=== PATIENT | male | born 1945 | race Caucasian/White ===

== ENCOUNTER → 2017-06-12 | Day surgery (SDC) | payer MEDICARE, OTHER, SELFPAY | PROVIDERS: Family Provider Family Medicine; PCP Family Medicine; Visit Provider Ophthalmology | DX: H25.12 Age-related nuclear cataract, left eye (principal) | CPT/HCPCS: V2788 ==

== ENCOUNTER 2019-02-14 13:19 | Day surgery (SDC) | payer MEDICARE, BC, SELFPAY ==
[2019-02-14] VITALS (8 sets, daily range): BP systolic 108–134; BP diastolic 63–80; PULSE 65–84; RESP 12–22; TEMP 36.6–37.1; O2SAT 96–100; BMI 26.4
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
--- NOTE | 2019-02-14 12:19 | PM.OP.ENDO ---
Operative Date/Time/Diagnoses Date of procedure: 02/14/19 Pre-op diagnosis: 1. History of colon polyps 2. Screening for colon cancer Procedure & Clinicians Study performed: Colonoscopy Same procedure as scheduled: Yes Indications: 1. History of colon polyps 2. Screening for colon cancer Surgeon: Tanya Samano Procedure Notes SCOAP/Timeout: 15:10 Procedure in detail: ENDOSCOPIST: Tanya Samano MD Sedation RN: Danielle Leslie RN Sedation start time: 15:13 Sedation end time: 15:29 PROCEDURE: Colonoscopy INDICATIONS: 1. History of colon polyps 2. Screening for colon cancer MEDICATION: Levsin 0.125 mg sublingual, 4 mg Versed, and 100 mcg fentanyl. Due to poor inspiratory effort, 0.2 mg of flumazenil was administered with excellent affect. ASA CLASS: 2 CECAL WITHDRAWAL TIME: 8 minutes COMPLICATIONS: None. EXTENT OF PROCEDURE: Cecum. QUALITY OF PREP: Good with portions of liquid stool. PROCEDURE: Prior to insertion of the colonoscope, a digital rectal examination was accomplished with circumferential palpation of the distal rectal mucosa without significant findings being noted. The high-definition colonoscope was passed into the rectum in the usual fashion and advanced over to the cecum without difficulty. The ileocecal valve, appendiceal stoma, and medial wall all could be inspected and no abnormalities were seen. ASCENDING COLON: As the colonoscope was withdrawn, care was taken to expose and inspect the haustral folds and no abnormalities were seen. HEPATIC FLEXURE: Normal no polyps, diverticula or other abnormalities. TRANSVERSE COLON: Normal no polyps, diverticula or other abnormalities. DESCENDING COLON: Minor diverticulosis, noninflamed, otherwise, normal, no polyps, or other abnormalities. SIGMOID COLON: Minor diverticulosis, noninflamed, otherwise, normal, no polyps, or other abnormalities. RECTUM: Normal. J maneuver was produced. There was no significant perianal disease. The J maneuver was broken. The remainder of the rectum was inspected and there was no external hemorrhoid disease. The scope was withdrawn. IMPRESSION: 1. Normal colonoscopy 2. Left-sided diverticulosis, minor, noninflamed PLAN: 1. Secondary to patient's age, no further colonoscopy screening is required. The possibility of a missed lesion including a malignancy has been discussed with the patient previously. Potential alarm symptoms have been discussed and should be reported immediately. Scope withdrawal time: 8 Sedation minutes: 15 Findings: diverticulitis Specimen(s): none sent Complications: other (Due to poor inspiratory effort, Romazicon 0.2 mg x1 was administered with excellent effect.) Impression: As above. Post-procedure Recommendations: Other recommendation (No further colonoscopies needed.) Follow up: as needed Disposition: PACU
[2019-02-14] MEDS: SODIUM CHLORIDE 0.9% 1,000 ML 200 ML IV (13:40)
[2019-02-14] MEDS: HYOSCYAMINE 0.125 MG TABLET PO (14:53)
[2019-02-14] MEDS: MIDAZOLAM 5 MG/5 ML VIAL IV (15:11)
[2019-02-14] MEDS: fentaNYL 250 MCG/5 ML INJ IV (15:12)
[2019-02-14] MEDS: FLUMAZENIL 0.5 MG/5 ML MDV 0.2 MG IV (15:20)
--- NOTE | 2019-02-14 15:44 | SUR.PHASEI ---
[id number] Dr. Hanna spoke with the patient. Denies pain/nausea; Oriented, pleasant
--- NOTE | 2019-02-14 15:55 | SUR.PHASEI ---
Pt awake, denies pain/nausea, 'just a little groggy, like I shouldn't drive home. Preparing to transfer. Tolerating juice well.
--- NOTE | 2019-02-14 16:13 | SUR.PHASEII ---
at bedside, patient talking, waiting for meal try. Pt and education as to continuous pulse oximeter and extended stay. Meal tray ordered. Juice given.
--- NOTE | 2019-02-14 16:46 | SUR.PHASEII ---
1630 Continues talking with while on continuous pulse oximeter. Has not been sleeping. Report given to Rosita Chatman RN
--- NOTE | 2019-02-14 17:19 | SUR.PHASEII ---
Discharged patient home in stable condition via wheelchair to private vehicle with .
== END 2019-02-14 17:19 | disposition home or self-care (01) ==
PROVIDERS: PCP Student in an Organized Health Care Education/Training Program; Visit Provider Student in an Organized Health Care Education/Training Program
PROC: 0DJD8ZZ Inspection of Lower Intestinal Tract, Via Natural or Artificial Opening Endoscopic (ICD-10-PCS; CPT 45378; principal; 2019-02-14 15:00)
DX: Z12.11 Encounter for screening for malignant neoplasm of colon (principal); Z86.010 Personal history of colon polyps; K57.30 Diverticulosis of large intestine without perforation or abscess without bleeding
CPT/HCPCS: G0105; J2250; J3010

== ENCOUNTER → 2023-03-06 12:05 | Outpatient (CLI) | payer MEDICARE, SELFPAY ==
--- NOTE | 2023-03-06 | DI.RAD.S_ITS ---
PROCEDURE: XR KNEE LT 3V INDICATIONS: LEFT KNEE PAIN TECHNIQUE: 3 views of the knee were acquired. COMPARISON: [facility], , KNEE 3V LEFT, 07/19/2010, 15:57. FINDINGS: Bones: Moderate degenerative changes, progressed from prior. This particularly affects the medial compartment. No displaced fracture or dislocation. Patellar enthesopathy. Soft tissues: [id number] joint effusion. Vascular and dystrophic calcifications are present. Chondrocalcinosis IMPRESSION: Moderate degenerative changes at the progressed from prior. This particularly affects the medial compartment. Suprapatellar effusion. Chondrocalcinosis. If there is high concern for further derangement, consider MRI evaluation. Dictated by: Abdoul Granados M.D. on 03/06/2023 at 14:30 Approved by: Abdoul Granados M.D. on 03/06/2023 at 14:31
== END ==
PROVIDERS: PCP Family Medicine; Referring Provider Family Medicine; Visit Provider Family Medicine
DX: M25.562 Pain in left knee (principal); M25.462 Effusion, left knee; M11.262 Other chondrocalcinosis, left knee
CPT/HCPCS: 73562

== ENCOUNTER → 2023-07-16 09:12 | Outpatient (CLI) | payer MEDICARE, SELFPAY ==
[2023-07-16 11:59] LABS: Testosterone 261 ng/dL (71.8-623)
== END ==
PROVIDERS: PCP Family Medicine; Referring Provider Family Medicine; Visit Provider Family Medicine
DX: R79.89 Other specified abnormal findings of blood chemistry (principal)
CPT/HCPCS: 36415; 84403

== ENCOUNTER → 2023-09-14 07:42 | Outpatient (CLI) | payer MEDICARE, SELFPAY ==
[2023-09-14 08:26] LABS: Add Manual Diff / Slide Review NO; Basophils Absolute Auto 0 /uL (0-100); Basophils Percent Auto 0.5 % (0-2); Eosinophils Absolute Auto 100 /uL (0-450); Eosinophils Percent Auto 2.7 % (2-4); Hematocrit 44.5 % (41-53); Lymphocytes Absolute Auto 900 /uL (1100-4500); Lymphocytes Percent Auto 17.7 % (25-40); Mean Corpuscular HGB Conc 33.7 % (30-36); Mean Corpuscular Hemoglobin 30.8 PG (26-34); Mean Corpuscular Volume 91.5 fL (80-100); Monocytes Absolute Auto 700 /uL (0-900); Monocytes Percent Auto 13.4 % (3-14); Neutrophils Absolute Auto 3300 /uL (1500-7000); Neutrophils Percent Auto 65.7 % (50-75); Platelet Count 135 X10^3/uL (150-400); Red Blood Cell Count 4.87 X10^6/uL (4.5-5.9); Red Cell Distribution Width 14.2 % (11.6-14.8)
[2023-09-14 09:05] LABS: Alanine Aminotransferase 15 IU/L (<50); Albumin 3.3 g/dL (3.5-5.0); Albumin Globulin Ratio 1.4 (1.0-2.8); Alkaline Phosphatase 39 U/L (38-126); Aspartate Aminotransferase 22 IU/L (17-59); BUN Creatinine Ratio 18.9 (6-22); Bilirubin Total 0.8 mg/dL (0.2-1.3); Blood Urea Nitrogen 17 mg/dL (9-20); Calcium 8.4 mg/dL (8.4-10.2); Carbon Dioxide 29 mmol/L (22-32); Chloride 101 mmol/L (98-107); Cholesterol 184 mg/dL (140-199); Estimated Glomerular Filt Rate > 60 mL/min (>60); Globulin 2.3 g/dL (1.7-4.1); Glucose 87 mg/dL (80-110); HDL Cholesterol 58 mg/dL (40-60); HEMOLYSIS < 15 (0-50); LDL Cholesterol Calculated 115 mg/dL (<100); Potassium 4.5 mmol/L (3.4-5.1); Sodium 132 mmol/L (137-145); Total Protein 5.6 g/dL (6.3-8.2); Triglycerides 56 mg/dL (35-150)
[2023-09-14 09:33] LABS: Prostate Specific Antigen 0.995 ng/mL (0.10-4.00)
[2023-09-19 09:37] LABS: Testosterone Free 6.24 ng/dL (5.00-21.00)
== END ==
PROVIDERS: PCP Family Medicine; Referring Provider Family Medicine; Visit Provider Family Medicine
DX: E78.5 Hyperlipidemia, unspecified (principal); N40.1 Benign prostatic hyperplasia with lower urinary tract symptoms; Z13.9 Encounter for screening, unspecified; R79.89 Other specified abnormal findings of blood chemistry; R35.1 Nocturia
CPT/HCPCS: 36415; 80053; 80061; 84153; 84402; 84403; 85025

== ENCOUNTER → 2024-07-24 09:48 | Outpatient (CLI) | payer MEDICARE, SELFPAY ==
[2024-07-24 11:42] LABS: Hematocrit 46.1 % (41-53); Hemoglobin 15.8 g/dL (13.5-17.5); Mean Corpuscular HGB Conc 34.2 % (30-36); Mean Corpuscular Hemoglobin 31.4 PG (26-34); Platelet Count 173 X10^3/uL (150-400); Red Blood Cell Count 5.02 X10^6/uL (4.5-5.9); Red Cell Distribution Width 14.5 % (11.6-14.8); White Blood Cell Count 3.9 X10^3/uL (4.5-11.0)
[2024-07-24 12:06] LABS: Alanine Aminotransferase 19 IU/L (<50); Albumin 3.8 g/dL (3.5-5.0); Albumin Globulin Ratio 1.6 (1.0-2.8); Alkaline Phosphatase 43 U/L (38-126); Aspartate Aminotransferase 29 IU/L (17-59); BUN Creatinine Ratio 19.1 (6-22); Blood Urea Nitrogen 17 mg/dL (9-20); Calcium 8.9 mg/dL (8.4-10.2); Carbon Dioxide 28 mmol/L (22-32); Chloride 101 mmol/L (98-107); Cholesterol 198 mg/dL (140-199); Estimated Glomerular Filt Rate > 60 mL/min (>60); Globulin 2.4 g/dL (1.7-4.1); Glucose 76 mg/dL (70-99); HDL Cholesterol 64 mg/dL (40-60); HEMOLYSIS < 15 (0-50); LDL Cholesterol Calculated 114 mg/dL (<100); Potassium 4.6 mmol/L (3.4-5.1); Sodium 134 mmol/L (137-145); Total Protein 6.2 g/dL (6.3-8.2); Triglycerides 98 mg/dL (35-150)
[2024-07-24 12:35] LABS: Prostate Specific Antigen 1.34 ng/mL (0.10-4.00)
== END ==
PROVIDERS: PCP Family Medicine; Referring Provider Family Medicine; Visit Provider Family Medicine
DX: Z12.5 Encounter for screening for malignant neoplasm of prostate (principal); E78.2 Mixed hyperlipidemia; R79.89 Other specified abnormal findings of blood chemistry
CPT/HCPCS: 36415; 80053; 80061; 84153; 84402; 84403; 85027

== ENCOUNTER → 2024-12-29 13:33 | Outpatient (CLI) | payer MEDICARE, SELFPAY ==
[2024-12-29 14:53] LABS: Add Manual Diff / Slide Review NO; Hematocrit 47.3 % (41-53); Hemoglobin 16.0 g/dL (13.5-17.5); Lymphocytes Absolute Auto 1100 /uL (1100-4500); Mean Corpuscular HGB Conc 33.7 % (30-36); Mean Corpuscular Hemoglobin 30.4 PG (26-34); Mean Corpuscular Volume 90.3 fL (80-100); Platelet Count 185 X10^3/uL (150-400)
== END ==
PROVIDERS: PCP Family Medicine; Referring Provider Family Medicine; Visit Provider Family Medicine
DX: R79.89 Other specified abnormal findings of blood chemistry (principal)
CPT/HCPCS: 36415; 84402; 84403; 85025

== ENCOUNTER → 2025-01-27 11:16 | Outpatient (CLI) | payer MEDICARE, SELFPAY ==
[2025-01-27 11:56] LABS: Add Manual Diff / Slide Review NO; Hematocrit 45.2 % (41-53); Hemoglobin 15.4 g/dL (13.5-17.5); Lymphocytes Absolute Auto 700 /uL (1100-4500); Mean Corpuscular HGB Conc 34.1 % (30-36); Mean Corpuscular Hemoglobin 30.5 PG (26-34); Mean Corpuscular Volume 89.4 fL (80-100); Platelet Count 186 X10^3/uL (150-400)
== END ==
PROVIDERS: PCP Family Medicine; Referring Provider Family Medicine; Visit Provider Family Medicine
DX: R79.89 Other specified abnormal findings of blood chemistry (principal)
CPT/HCPCS: 36415; 84402; 84403; 85025